=== PATIENT | female | born 1965 | race African-American/Black ===

== ENCOUNTER 2023-11-08 08:08 | Outpatient (CLI) | payer OTHER, SELFPAY ==
--- NOTE | ~2023-11-08 | US_ITS ---
Abdominal Sonogram: Real-time sonographic imaging of the abdomen was performed. Clinical History: Leukopenia Findings: The liver appears normal with no evidence of mass lesion or bile duct dilatation. Main por sherif vein demonstrates normal direction of flow. The spleen is normal in size without evidence of foca l lesion. The gallbladder is absent, compatible prior cholecystectomy. The common bile duct measures 4 mm. The visualized pancreas, aorta, and IVC are unremarkable. The right kidney measures 9.6 cm i n length and the left kidney measures 9.4 cm. There is no hydronephrosis or renal calculus. Impression: Status post cholecystectomy, otherwise unremarkable exam. Reviewed, dictated and finalized at location . Impression: Status post cholecystectomy, otherwise unremarkable exam.
== END 2023-11-08 08:09 | disposition home or self-care (01) ==
PROVIDERS: Visit Provider Internal Medicine Hematology & Oncology
DX: D72.819 Decreased white blood cell count, unspecified (principal); Z90.49 Acquired absence of other specified parts of digestive tract
CPT/HCPCS: 76700

== ENCOUNTER 2023-11-19 08:30 | Outpatient (CLI) | payer OTHER, SELFPAY ==
[2023-11-19 09:20] LABS: Basophils Percent Auto 0.3 % (0.2-1.2); Eosinophils Absolute Auto 0.1 K/mm3 (0-0.3); Eosinophils Percent Auto 2.4 % (0-4.4); Hematocrit 36.4 % (37.0-47.0); Hemoglobin 11.4 g/dL (12.0-15.0); Immature Granulocyte Absolute 0.01 K/mm3 (0.00-0.031); Immature Granulocyte Percent A 0.3 % (0-0.5); Lymphocytes Absolute Auto 0.99 K/mm3 (0.9-3.2); Lymphocytes Percent Auto 26.1 % (18.3-44.2); Mean Corpuscular HGB Conc 31.3 g/dl (32-36); Mean Corpuscular Hemoglobin 22.5 pg (26-34); Mean Corpuscular Volume 71.9 fl (80-100); Monocytes Absolute Auto 0.4 K/mm3 (0.1-0.6); Monocytes Percent Auto 9.2 % (2.6-8.5); Neutrophils Absolute Auto 2.3 K/mm3 (1.3-6.7); Neutrophils Percent Auto 61.7 % (45.5-73.1); Platelet Count Result 114 k/mm3 (150-375); Red Blood Count 5.06 M/mm3 (4.2-5.4); Red Cell Distribution Width 18.4 % (11.5-14.5); White Blood Count 3.8 K/mm3 (4.5-10.0)
[2023-11-19 09:36] LABS: Alanine Aminotransferase 20 U/L (6-35); Albumin Level 4.1 g/dL (3.5-5.1); Alkaline Phosphatase 114 U/L (38-126); Anion Gap 7 mmol/L (4-12); Aspartate Amino Transferase 28 U/L (14-36); Bilirubin,Total 0.5 mg/dL (0.2-1.3); Blood Urea Nitrogen 14 mg/dL (7-17); Carbon Dioxide 31 mmol/L (22-30); Chloride 100 mmol/L (98-107); Estimated Glomerular Filt Rate > 60; Glucose 101 mg/dL (65-110); Potassium 4.3 mmol/L (3.4-5.0); Sodium 138 mmol/L (137-145)
[2023-11-19 09:43] LABS: Transferrin 217 mg/dL (206-381)
[2023-11-19 09:52] LABS: Anisocytosis 1+; Hypochromasia 1+; Microcytosis 1+ (NORMAL); Ovalocytes 1+; Platelet Estimate Decreased (Adequate); Poikilocytosis 1+; Schistocytes None Seen; Target Cells 1+
[2023-11-19 09:59] LABS: Iron 50 ug/dL (37-170)
[2023-11-19 10:08] LABS: Percent Iron Saturation 17 % (20-50)
[2023-11-20 23:38] LABS: Hematocrit 37.1 % (35.0-45.0); Hemoglobin 11.5 g/dL (11.7-15.5); MCH 22.2 pg (27.0-33.0); MCV 71.5 fL (80.0-100.0); RDW 19.6 % (11.0-15.0); Red Blood Cell Count 5.19 Million/uL (3.80-5.10)
[2023-11-22 10:08] LABS: Anti Nuclear Antibody Pattern Nuclear, Speckled; Anti Nuclear Antibody Titer 1:40 titer
== END 2023-11-19 08:31 | disposition home or self-care (01) ==
LOC: ANHLAB 08:40
PROVIDERS: PCP Nurse Practitioner Family; Visit Provider Internal Medicine Hematology & Oncology
DX: D72.819 Decreased white blood cell count, unspecified (principal); D64.9 Anemia, unspecified
CPT/HCPCS: 36415; 80053; 82607; 82728; 82746; 83021; 83540; 83550; 84466; 85025; 86038; 86039